=== PATIENT | female | born 1975 | race Caucasian/White ===

== ENCOUNTER → 2025-04-19 10:51 | Outpatient (BNVA) | payer OTHER, SELFPAY | PROVIDERS: Visit Provider Nurse Practitioner Family | DX: D17.21 Benign lipomatous neoplasm of skin and subcutaneous tissue of right arm (principal); R20.9 Unspecified disturbances of skin sensation; R20.8 Other disturbances of skin sensation; R23.8 Other skin changes; D22.39 Melanocytic nevi of other parts of face; D22.5 Melanocytic nevi of trunk | CPT/HCPCS: 99203 ==

== ENCOUNTER 2025-04-25 13:32 | Outpatient (CLI) | payer OTHER, SELFPAY ==
--- NOTE | 2025-04-25 13:39 | CT_ITS ---
WS: [id number] CT chest w con* [id number] HISTORY: R LUNG DENSITY SEEN ON XRAY TECHNIQUE: Axial imaging performed through the thorax. Coronal and sagittal reformats are submitted. All CT scans at [facility] use at least one of these dose optimization techniques: automated exposure control; mA and/or kV adjustment per patient size (includes targeted exams where dose is matched to clinical indication); or iterative reconstruction. CONTRAST: Omnipaque 350; 100 mL IV. DLP: 222.52 mGy.cm COMPARISON: None available. Lungs and central airway: Linear scar with associated calcification at the RIGHT lung base. Scar extends to the pleura. No prior studies for comparison. There are a few additional scattered noncalcified nodules. 3 mm noncalcified nodule at the lingula. Perifissural nodules along the RIGHT minor fissure. Broad-based pleural nodule anterior LEFT upper lobe measures 13 x 5 mm. Pleura: Normal. No pleural effusion. Heart and pericardium: Normal size heart with no pericardial effusion. Mediastinum and suresh: No pathologically enlarged lymph nodes. Mild prominent lymphoid tissue at the hilar regions. Vessels: Normal size aortic and pulmonary artery. No coronary artery calcifications. Chest wall and lower neck: No soft tissue masses. Upper abdomen: Normal. Osseous structures: No destructive process. CT/CT chest w con* [id number] IMPRESSION: 1. Linear scar with calcification at the RIGHT lung base. Benign appearance. 2. There are additional scattered subcentimeter pulmonary nodules and RIGHT pe rifissural nodules. Pleural-based nodule anterior LEFT upper lobe is the larges t measuring 13 x 5 mm. With no prior studies for comparison recommend 3 to 6-mo [facility] chest CT follow-up with IV contrast to ensure stability of the pulmonary no dules in the RIGHT LEFT upper lobe pleural-based mass. 3. No pathologically enlarged mediastinal lymph nodes.
[2025-04-25] MEDS: iohexol 350 mg/mL 500 mL Btl (per mL) IV (14:43)
== END 2025-04-25 13:33 | disposition home or self-care (01) ==
LOC: RAD 13:33
PROVIDERS: Visit Provider Nurse Practitioner
DX: R91.8 Other nonspecific abnormal finding of lung field (principal)
CPT/HCPCS: 71260

== ENCOUNTER → 2025-05-09 08:04 | Outpatient (BNVA) | payer OTHER, SELFPAY | PROVIDERS: Visit Provider Dermatology | DX: D48.5 Neoplasm of uncertain behavior of skin (principal); R20.8 Other disturbances of skin sensation; R23.8 Other skin changes; L53.8 Other specified erythematous conditions | CPT/HCPCS: 11406; 12032 ==